=== PATIENT | female | born 1955 | race Caucasian/White ===

== ENCOUNTER 2017-08-06 10:20 | Outpatient (CLI) | payer OTHER | END 2017-08-06 10:21 | disposition home or self-care (01) | LOC: BICMAMMO 10:20 | PROVIDERS: ATTEND Family Medicine | DX: Z12.31 Encounter for screening mammogram for malignant neoplasm of breast (principal) | CPT/HCPCS: 77067 ==

== ENCOUNTER 2017-09-03 12:06 | Outpatient (CLI) | payer OTHER ==
--- NOTE | 2017-09-03 14:59 | RAD ---
CHEST 2 VIEWS: HISTORY: Dyspnea. FINDINGS: No comparison. Cardiac silhouette and pulmonary vasculature are unremarkable. Mediastinum is midlin e. There is no confluent airspace consolidation, pneumothorax, or pleural fluid evident. IMPRESSION: No active cardiopulmonary abnormalities are demonstrated. POS: [facility]
== END 2017-09-03 12:07 | disposition home or self-care (01) ==
LOC: RAD 12:06
PROVIDERS: ATTEND Internal Medicine
DX: R06.00 Dyspnea, unspecified (principal)
CPT/HCPCS: 71046

== ENCOUNTER 2017-09-24 13:10 | Outpatient (CLI) | payer OTHER ==
--- NOTE | 2017-09-25 15:51 | PFT ---
PATIENT HISTORY: HEIGHT: 64 IN WEIGHT:147 SMOKER: NO HOW LONG: NEVER PACKS PER DAY PRODUCTIVE COUGH: LUNG DISEASE: PHYSICIAN INTERPRETATION FINAL REPORT: Speech Correction Assistant comments patient had good effort inquire effort and cooperation FVC 3.56 (115%), FEV1 2.85 (121%), FEV1/FVC 0.81 TLC 5.06 (103%), FRC 3.30 (119%), RV 100 1.56 (85%). Diffusion 18.44 (97%). The FEV1 and FVC are normal. There is no significant obstructive profile present on the ratio. The flow volume loops are normal. There is no significant change following administration of bronchodilator. Lung volumes fall within the normal limits. Diffusion capacity is also normal. IMPRESSION: These pulmonary function studies are normal. Speech Correction Assistant: DIANA Tray Drier Operator: DIANA CRUM
== END 2017-09-24 13:11 | disposition home or self-care (01) ==
LOC: CP 13:10
PROVIDERS: ATTEND Internal Medicine
DX: E88.01 Alpha-1-antitrypsin deficiency (principal)
CPT/HCPCS: 94060; 94727; 94729

== ENCOUNTER 2018-07-08 14:56 | Outpatient (CLI) | payer OTHER ==
--- NOTE | 2018-07-08 15:42 | SJPRAD ---
ABDOMEN TWO VIEWS: History: Abdomen pain. FINDINGS: No comparison. Gas and stool over the colon and rectum. No differential airfluid levels or evidence o f free intraperitoneal gas. Phleboliths overlie the pelvis. Metallic clips at the gallbladder fossa. IMPRESSION: Nonspecific bowel gas pattern. Status post cholecystectomy. POS: [facility]
== END 2018-07-08 14:57 | disposition home or self-care (01) ==
LOC: PBC RADSJB 14:56
PROVIDERS: ATTEND Family Medicine
DX: R10.9 Unspecified abdominal pain (principal); Z90.49 Acquired absence of other specified parts of digestive tract
CPT/HCPCS: 87045; 87046; 87324; 87338; 87449; 87899

== ENCOUNTER 2018-09-15 07:17 | Day surgery (SDC) | payer OTHER ==
[2018-09-14 12:38] VITALS: BMI 26.6
--- NOTE | 2018-09-15 03:10 | HP ---
HISTORY OF PRESENT ILLNESS: This is a 62-year-old female with history of dysphagia and worsening acid reflux. The patient has history of colon polyps from before. The patient comes for EGD and dilation and colonoscopy because of symptoms of esophageal stricture and history of colon polyp. ALLERGIES: NONE. MEDICAL ILLNESSES: 1. Chronic acid reflux. 2. Dysphagia. 3. IBS. 4. Alpha-1 antitrypsin deficiency. 5. Stomach ulcer. 6. Esophageal stricture. 7. Colon polyps. SOCIAL HISTORY: The patient does not smoke or drink alcohol. PHYSICAL EXAMINATION: VITAL SIGNS: Pulse is 72, blood pressure 120/76. HEENT: Conjunctivae clear. NECK: Supple. No adenitis or thyromegaly noted. CARDIOVASCULAR: First and second heart sounds heard. LUNGS: Clear to auscultation. ABDOMEN: Soft. No organomegaly. No tenderness. No masses. ADMITTING DIAGNOSIS: 1. Chronic acid reflux, dysphagia. 2. Colon polyps. PLAN: EGD and dilation. Job ID: [id number]
--- NOTE | 2018-09-15 12:31 | OP ---
DATE OF PROCEDURE: 09/15/2018 PROCEDURE PERFORMED: Colonoscopy. PREOPERATIVE DIAGNOSIS: A 62-year-old female with a history of colon polyps, undergoing colonoscopy. POSTOPERATIVE DIAGNOSES: 1. Hemorrhoids. 2. Mild sigmoid diverticular disease. 3. Redundant colon. DESCRIPTION OF PROCEDURE: The patient was placed on her left lateral position and was given sedation by Anesthesia Department. A rectal exam was done before the scope was advanced into the rectum. No lesions were felt on rectal exam. A Pentax video colonoscope was introduced into the rectum and advanced all the way into the cecum. The prep was good. The mucosa appears normal throughout the colon with normal vascular pattern. The patient had redundant, tortuous colon. The appendiceal orifice, ileocecal wall, and cecum; no pathology seen. Withdrawal of scope from the cecum, ascending colon, and hepatic flexure; no pathology seen. In the transverse colon, splenic flexure, and descending colon; no pathology seen. The sigmoid colon shows mild diverticula. The rectum showed hemorrhoids. Job ID: [id number]
--- NOTE | 2018-09-15 13:20 | OP ---
DATE OF PROCEDURE: 09/15/2018 PROCEDURE PERFORMED: 1. Esophagogastroduodenoscopy with biopsy. 2. Esophageal dilation with a 50-Luxembourger Don dilator. PREOPERATIVE DIAGNOSIS: A 62-year-old female with chronic intestinal acid reflux symptoms, which have been worsening lately. She also has a history of dysphagia. The patient is undergoing EGD. POSTOPERATIVE DIAGNOSES: 1. The esophageal mucosa appeared normal. 2. Distal esophageal ring nonobstructing. 3. Antral gastritis and few erosions of the gastric body. DESCRIPTION OF PROCEDURE: The patient was placed on her left lateral position and was given sedation by Anesthesia Department. A Pentax video gastroscope under direct vision was passed down the oropharynx past the GE junction into the stomach and subsequently into the descending duodenum. The vocal cords appeared to be very healthy. There was no intrinsic lesion seen in the stomach. Although, the patient complained of worsening symptoms. On the endoscopy, the mucosa actually appeared normal. At the GE junction, the patient had esophageal ring, which was wide open. Retroflexion failed to show any pathology in fundus or cardia. Over the gastric body and the antrum, there were few erosions and mild gastritis was seen. Biopsy was obtained from the area. The duodenal bulb and descending duodenum, no pathology seen. History of dysphagia, a 50-Luxembourger Don dilator passed down with no resistance. Post dilation, the scope advanced back into the stomach. No complication was noted. The stomach decompressed and scope removed. DISCHARGE PLANNING: This is a 62-year-old female with worsening acid reflux and dysphagia. The patient also has history of colon polyp. She underwent EGD with biopsy and dilation. The colonoscopy showed no pathology except for hemorrhoids and mild diverticular disease. DISCHARGE RECOMMENDATIONS: 1. omeprazole 40 once a day. 2. Dietary and lifestyle modification explained to the patient. 3. To come back to clinic in 2 weeks. Job ID: [id number] [facility]
[2018-09-15] MEDS ORDERED: PROPOFOL 200 MG/20 ML VIAL ONE (15:20)
[2018-09-15] MEDS ORDERED: Lidocaine 1% PF 5 ML VIAL ONE (15:20)
== END 2018-09-15 11:05 | disposition home or self-care (01) ==
LOC: SDC 07:17
PROVIDERS: ATTEND Internal Medicine Gastroenterology
PROC: 0DJD8ZZ Inspection of Lower Intestinal Tract, Via Natural or Artificial Opening Endoscopic (ICD-10-PCS; principal; 2018-09-15)
PROC: 0DB78ZX Excision of Stomach, Pylorus, Via Natural or Artificial Opening Endoscopic, Diagnostic (ICD-10-PCS; principal; 2018-09-15)
PROC: 0D757ZZ Dilation of Esophagus, Via Natural or Artificial Opening (ICD-10-PCS; principal; 2018-09-15)
DX: Z12.11 Encounter for screening for malignant neoplasm of colon (principal); K64.9 Unspecified hemorrhoids; K57.30 Diverticulosis of large intestine without perforation or abscess without bleeding; K63.89 Other specified diseases of intestine; K29.60 Other gastritis without bleeding; K22.2 Esophageal obstruction; K21.9 Gastro-esophageal reflux disease without esophagitis; K25.9 Gastric ulcer, unspecified as acute or chronic, without hemorrhage or perforation; K63.5 Polyp of colon; I10 Essential (primary) hypertension; E88.01 Alpha-1-antitrypsin deficiency; K58.9 Irritable bowel syndrome, unspecified; G62.9 Polyneuropathy, unspecified; Z86.73 Personal history of transient ischemic attack (TIA), and cerebral infarction without residual deficits; Z86.010 Personal history of colon polyps; Z79.899 Other long term (current) drug therapy
CPT/HCPCS: 88305; 88312; J2001; J2704

== ENCOUNTER 2018-09-22 08:56 | Outpatient (CLI) | payer OTHER | END 2018-09-22 08:57 | disposition home or self-care (01) | LOC: CP 08:56 | PROVIDERS: ATTEND Internal Medicine | DX: E88.01 Alpha-1-antitrypsin deficiency (principal) | CPT/HCPCS: 94010; 94729 ==

== ENCOUNTER 2018-09-28 07:40 | Outpatient (CLI) | payer OTHER ==
--- NOTE | 2018-09-28 08:43 | MMO ---
Bilateral MAMMO Bilat Screen [facility]. CLINICAL HISTORY: Patient is 62 years old and is seen for screening. The patient has no family history of breast cancer. The patient has no personal history of cancer. VIEWS: The views performed were: bilateral craniocaudal with tomosynthesis; bilateral mediolateral oblique with tomosynthesis; and bilateral exaggerated craniocaudal. FILMS COMPARED: The present examination has been compared to a prior imaging study performed at [facility] on 08/06/2017. MAMMOGRAM FINDINGS: There are stable benign appearing calcifications seen in both breasts. There are also vascular calcifications. There are no suspicious masses, suspicious calcifications, or new areas of architectural distortion. IMPRESSION: THERE IS NO MAMMOGRAPHIC EVIDENCE OF MALIGNANCY. A ROUTINE FOLLOW-UP MAMMOGRAM IN 1 YEAR IS RECOMMENDED. THE RESULTS OF THIS EXAM WERE SENT TO THE PATIENT. ACR BI-RADS Category 2 - Benign finding MAMMOGRAPHY NOTE: 1. A negative mammogram report should not delay a biopsy if a dominant of clinically suspicious mass is present. 2. Approximately 10% to 15% of breast cancers are not detected by mammography. 3. Adenosis and dense breasts may obscure an underlying neoplasm.
== END 2018-09-28 07:41 | disposition home or self-care (01) ==
LOC: BICMAMMO 07:40
PROVIDERS: ATTEND Family Medicine
DX: Z12.31 Encounter for screening mammogram for malignant neoplasm of breast (principal)
CPT/HCPCS: 77063; 77067

== ENCOUNTER 2019-03-30 08:53 | Outpatient (CLI) | payer OTHER ==
--- NOTE | 2019-03-30 10:07 | BD ---
BONE DENSITOMETRY USING DEXA: Date: 03/30/19 HISTORY: Postmenopausal screening for osteoporosis. FINDINGS: Lumbar Spine: BMD (g/cm2) L1 0.942 T-Score: -0.4 Z-Score: 0.9 L2 1.002 T-Score: -0.2 Z-Score: 1.2 L3 0.939 T-Score: -1.3 Z-Score: 0.2 L4 0.911 T-Score: -1.4 Z-Score: 0.2 L1-L4 0.945 T-Score: -0.9 Z-Score: 0.6 Femoral Neck: 0.833 T-Score: -0.1 Z-Score: 1.2 Total Femur: 1.014 T-Score: 0.6 Z-Score: 1.6 IMPRESSION: Normal bone mineral density. POS: [facility]
== END 2019-03-30 08:54 | disposition home or self-care (01) ==
LOC: BICMAMMO 08:53
PROVIDERS: ATTEND Family Medicine
DX: Z13.820 Encounter for screening for osteoporosis (principal); Z78.0 Asymptomatic menopausal state
CPT/HCPCS: 77080

== ENCOUNTER 2019-10-05 09:16 | Outpatient (CLI) | payer OTHER ==
--- NOTE | 2019-10-05 10:52 | MMO ---
Bilateral MAMMO Bilat Screen [facility]. CLINICAL HISTORY: Patient is 63 years old and is seen for screening. The patient has no family history of breast cancer. The patient has no personal history of cancer. VIEWS: The views performed were: bilateral craniocaudal with tomosynthesis and bilateral mediolateral oblique with tomosynthesis. FILMS COMPARED: The present examination has been compared to prior imaging studies performed at [facility] on 08/06/2017 and 09/28/2018. This study has been interpreted with the assistance of computer-aided detection. MAMMOGRAM FINDINGS: There are scattered fibroglandular densities. Benign calcifications are noted bilaterally. There are no suspicious masses, suspicious calcifications, or new areas of architectural distortion. IMPRESSION: THERE IS NO MAMMOGRAPHIC EVIDENCE OF MALIGNANCY. A ROUTINE FOLLOW-UP MAMMOGRAM IN 1 YEAR IS RECOMMENDED. THE RESULTS OF THIS EXAM WERE SENT TO THE PATIENT. ACR BI-RADS Category 2 - Benign finding MAMMOGRAPHY NOTE: 1. A negative mammogram report should not delay a biopsy if a dominant of clinically suspicious mass is present. 2. Approximately 10% to 15% of breast cancers are not detected by mammography. 3. Adenosis and dense breasts may obscure an underlying neoplasm. Reported by: CRISTY RAE MD Electonically Signed: [id number]
== END 2019-10-05 09:17 | disposition home or self-care (01) ==
LOC: BICMAMMO 09:16
PROVIDERS: ATTEND Family Medicine
DX: Z12.31 Encounter for screening mammogram for malignant neoplasm of breast (principal)
CPT/HCPCS: 77063; 77067

== ENCOUNTER 2020-03-16 10:44 | Outpatient (CLI) | payer OTHER ==
--- NOTE | 2020-03-16 13:15 | CT ---
Exam: Abdomen CT with and without contrast Pelvic CT with and without contrast HISTORY: Abdominal pain. Possible left renal mass. COMPARISON: None Correlation: Abdomen ultrasound 03/09/2020 TECHNIQUE: Abdomen and pelvic CT is performed with and without contrast following urogram protocol. C oronal reformatted images are submitted for interpretation FINDINGS: Lung bases: Clear to masses or consolidation Heart: Heart size. No significant pericardial fluid Aorta: Minimal atherosclerosis. No aneurysm, dissection or periaortic fat stranding Liver: Appropriate enhancement. No enhancing masses. Spleen: Appropriate enhancement Pancreas: Appropriate enhancement Adrenal glands: Appropriate enhancement of the right adrenal gland. 1.3 cm left adrenal adenoma with attenuation coefficient of -5.8 Hounsfield units on the noncontrast sequence. Lymph nodes: No gastrohepatic, retrocrural or periportal lymphadenopathy Portal vein: Patent Gallbladder: Surgically absent gallbladder Kidneys: Noncontrast: No hydronephrosis, nephrolithiasis or perinephric fat stranding. No evidence of obstruct toby uropathy. Contrast: Symmetric enhancement of the kidneys. There are no renal masses. Delayed: Symmetric excretion into a decompressed intrarenal and extrarenal collecting system. No fill ing defects. Mesentery: No mass, nephropathy, free air or free fluid Alimentary canal: Gastric mucosa, duodenum and multiple normal caliber small bowel loops. No small candace wel obstruction. Normal ileocecal junction. Scattered fecal material in a nondistended, nondilated colon. Occasional diverticulum in the sigmoid colon. No diverticulitis. Normal caliber appendix. CT PELVIS: Reproductive organs and pelvis: Surgically absent uterus Urinary bladder: No acute abnormality. Contrast opacifies the dependent portion of the urinary bladde r. No lytic or blastic lesions in the osseous structures IMPRESSION: 1. No evidence of obstructive uropathy. 2. No abnormal enhancing masses in the left or right renal cortex.
== END 2020-03-16 10:45 | disposition home or self-care (01) ==
LOC: SCSCT 10:44
PROVIDERS: ATTEND Family Medicine
DX: N28.89 Other specified disorders of kidney and ureter (principal)
CPT/HCPCS: 74178

== ENCOUNTER 2020-03-22 09:57 | Outpatient (CLI) | payer OTHER ==
--- NOTE | 2020-03-23 10:13 | RAD ---
EXAM: XR Thoracic Spine 2 View PROVIDED CLINICAL HISTORY: Degenerative disc disease COMPARISON: None FINDINGS: Vertebral body heights and intervertebral disc spaces are within normal limits. No fracture or sublux ation is seen involving the thoracic spine. Surgical clips overlie the right upper quadrant.. IMPRESSION: No acute findings involving the thoracic spine. Transcribed Date/Time: 03/23/2020 10:14 AM
--- NOTE | 2020-03-23 10:16 | RAD ---
EXAM: XR Lumbar Spine 2 Or 3 View PROVIDED CLINICAL HISTORY: Degenerative disc disease. COMPARISON: None FINDINGS: There are 5 nonrib-bearing lumbar-type vertebral bodies. The vertebral body heights and intervertebra l disc spaces are within normal limits. A few minimal osteophytes are seen anteriorly in the upper lumbar spine. No fracture or subluxation is seen involving the lumbar spine. Surgical clips overlie the right upper quadrant. Residual contrast is seen in the descending and sigm oid colon. IMPRESSION: No acute findings involving the lumbar spine. Transcribed Date/Time: 03/23/2020 10:16 AM
== END 2020-03-22 09:58 | disposition home or self-care (01) ==
LOC: SCSRAD 09:57
PROVIDERS: ATTEND Family Medicine
DX: Z87.39 Personal history of other diseases of the musculoskeletal system and connective tissue (principal)
CPT/HCPCS: 72072; 72100

== ENCOUNTER 2021-05-03 12:32 | Outpatient (CLI) | payer OTHER | END 2021-05-03 12:33 | disposition home or self-care (01) | LOC: BICMAMMO 12:32 | PROVIDERS: ATTEND Family Medicine | DX: Z12.31 Encounter for screening mammogram for malignant neoplasm of breast (principal) | CPT/HCPCS: 77063; 77067 ==